=== PATIENT | female | born 1980 | race Caucasian/White ===

== ENCOUNTER 2018-05-09 10:30 | Emergency (ER) | payer OTHER ==
[2018-05-09 10:53] VITALS: BMI 23.3
--- NOTE | 2018-05-09 10:59 | C.PDOC ---
History Of Present Illness 37-year-old female with a PMHx of ovarian cysts, presents to the ED complaining of pain to the bilateral lower extremities, ongoing for over 1 week. Patient reports history of varicose veins in both legs. Additionally she compla ins of pelvic pain which is described as pressure-like, developing over the past month. Patient is approximately 18 weeks , and follows with OB Dr. Montemayor. She denies any vaginal bleeding, fever, chills, nausea, or vomiting. Time Seen by Provider: 05/09/18 10:41 Chief Complaint (Nursing): Lower Extremity Problem/Injury History Per: Patient History/Exam Limitations: no limitations Onset/Duration Of Symptoms: Days Current Symptoms Are (Timing): Still Present Past Medical History Reviewed: Historical Data, Nursing Documentation, Vital Signs - Medical History PMH: Denies: Depression Other PMH: Ovarian cysts Surgical History: Tonsillectomy Other Surgeries: Ovarian cyst removal - [facility] Procedures INJECT/INFUSE ELECTROLYT (05/07/12) INJECT/INFUSE NEC (05/07/12) Family History: States: Unknown Family Hx - Social History Hx Tobacco Use: No Hx Alcohol Use: No Hx Substance Use: No - Immunization History Hx Tetanus Toxoid Vaccination: No Hx Influenza Vaccination: No Hx Pneumococcal Vaccination: Yes Review Of Systems Constitutional: Negative for: Fever, Chills Cardiovascular: Negative for: Chest Pain Respiratory: Negative for: Shortness of Breath Gastrointestinal: Negative for: Nausea, Vomiting Genitourinary: Positive for: Pelvic Pain. Negative for: Dysuria, Frequency, Vaginal Discharge, Vaginal Bleeding Musculoskeletal: Positive for: Leg Pain Physical Exam - Physical Exam Appears: Well, Non-toxic, No Acute Distress Skin: Warm, Dry Head: Atraumatic, Normacephalic Eye(s): bilateral: Normal Inspection Oral Mucosa: Moist Neck: Normal ROM Chest: Symmetrical Cardiovascular: Rhythm Regular, No Murmur Respiratory: Normal Breath Sounds, No Accessory Muscle Use Gastrointestinal/Abdominal: Soft, Tenderness (Suprapubic), No Guarding, No Rebound Back: Normal Inspection Extremity: Normal ROM, Tenderness (thigh tenderness bilateral) Extremity: Bilateral: Atraumatic, Normal ROM, Other (Varicose veins to bilateral lower extremities) Pulses: Left Dorsalis Pedis: Normal, Right Dorsalis Pedis: Normal Neurological/Psych: Oriented x3, Normal Speech ED Course And Treatment - Laboratory Results Result Diagrams: 05/09/18 11:25 05/09/18 11:25 Lab Interpretation: Normal Urine POC: Positive O2 Sat by Pulse Oximetry: 99 (RA) Pulse Ox Interpretation: Normal - CT Scan/US No standard instances Other Rad Studies (CT/US): Read By Radiologist, Radiology Report Reviewed CT/US Interpretation: Findings: There is a single living fetus in breech presentation. Posterior placenta. The placenta is not previa. There are no adnexal masses or cysts evident. The study was performed for the emergent evaluation of bleeding, and the whole anatomic survey of the fetus was not performed. Limited submitted views demonstrate dilated renal collecting systems measuring approximately 7 mm on the right and 5 mm on the left. Recommend outpatient dedicated anatomic survey of the fetus as well as maternal specialist follow-up. Measurements and calculations: Fetus has a composite sonographic age of 18 weeks 3 days. This calculation is based on the biparietal diameter, head circumference, abdominal circumference, and femur length. Estimated heart rate 146.3 beats per min. Estimated weight 238.9 g. Impression: Single living fetus with a composite sonographic age of 18 weeks 3 days. Breech presentation. Estimated heart rate 146.3 beats per min. The study was performed for the emergent evaluation of bleeding, and the whole anatomic survey of the fetus was not performed. Limited submitted views demonstrate dilated renal collecting systems measuring approximately 7 mm on the right and 5 mm on the left. Recommend outpatient dedicated anatomic survey of the fetus as well as maternal specialist follow-up. Progress Note: Treated with tylenol 650 mg PO. Doppler bilateral lower extremity (-) DVT. 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 - Scribe Statement The provider has reviewed the documentation as recorded by the Vilmaibtrevon Dominguez All medical record entries made by the Vilmaibtrevon were at my direction and personally dictated by me. I have reviewed the chart and agree that the record accurately reflects my personal performance of the history, physical exam, medical decision making, and the department course for this patient. I have also personally directed, reviewed, and agree with the discharge instructions and disposition.
[2018-05-09 11:15] VITALS: RESP 18; O2SAT 99
[2018-05-09 11:23] LABS: SQUAMOUS EPITHIAL 7 /hpf (0-5); URINE BACTERIA RARE (<OCC); URINE BILIRUBIN NEGATIVE (NEGATIVE); URINE BLOOD NEGATIVE (NEGATIVE); URINE CLARITY Hazy (Clear); URINE COLOR Yellow (YELLOW); URINE GLUCOSE (UA) NORMAL (Normal); URINE LEUKOCYTE ESTERASE NEG Leu/uL (Negative); URINE PROTEIN 1+ mg/dL (NEGATIVE); URINE UROBILINOGEN NORMAL mg/dL (0.2-1.0)
[2018-05-09 11:34] LABS: BASO # 0.1 K/uL (0.0-0.2); BASO % 0.6 % (0.0-2.0); EOS # 0.1 K/uL (0.0-0.7); EOS % 0.7 % (0.0-4.0); HEMOGLOBIN 11.3 g/dL (11.0-16.0); LYMPH # 1.3 K/uL (1.0-4.3); LYMPH % 14.9 % (20.0-40.0); MEAN CELL VOLUME 90.5 fL (81.0-99.0); MEAN CORPUSCULAR HEMOGLOBIN 31.3 pg (27.0-31.0); MEAN CORPUSCULAR HGB CONC 34.6 g/dL (33.0-37.0); MEAN PLATELET VOLUME 9.1 fL (7.2-11.7); MONO # 0.4 K/uL (0.0-0.8); MONO % 4.8 % (0.0-10.0); NEUT # 6.9 K/uL (1.8-7.0); RBC 3.62 Mil/uL (3.80-5.20); RED CELL DISTRIBUTION WIDTH 14.1 % (11.5-14.5); WHITE BLOOD COUNT 8.7 K/uL (4.8-10.8)
[2018-05-09 12:07] LABS: ALB/GLOB RATIO 1.4 (1.0-2.1); ALBUMIN 3.4 g/dL (3.5-5.0); BLOOD UREA NITROGEN 11 mg/dL (7-17); CALCIUM 8.5 mg/dl (8.6-10.4); GFR NON-AFRICAN AMERICAN > 60
[2018-05-09 12:11] LABS: ALT/SGPT 15 U/L (9-52); AST/SGOT 25 U/L (14-36)
[2018-05-09 14:20] VITALS: BP 102/58; PULSE 79; TEMP 98.4
--- NOTE | 2018-05-09 14:21 | US ---
Indication: bleeding Comparison: None available Technique: Real-time ultrasound was performed through the pelvis. Findings: There is a single living fetus in breech presentation. Posterior placenta. The placenta is not previa. There are no adnexal masses or cysts evident. The study was performed for the emergent evaluation of bleeding, and the whole anatomic survey of the fetus was not performed. Limited submitted views demonstrate dilated renal collecting systems measuring approximately 7 mm on the right and 5 mm on the left. Recommend outpatient dedicated anatomic survey of the fetus as well as maternal specialist follow-up. Measurements and calculations: Fetus has a composite sonographic age of 18 weeks 3 days. This calculation is based on the biparietal diameter, head circumference, abdominal circumference, and femur length. Estimated heart rate 146.3 beats per min. Estimated weight 238.9 g. Impression: Single living fetus with a composite sonographic age of 18 weeks 3 days. Breech presentation. Estimated heart rate 146.3 beats per min. The study was performed for the emergent evaluation of bleeding, and the whole anatomic survey of the fetus was not performed. Limited submitted views demonstrate dilated renal collecting systems measuring approximately 7 mm on the right and 5 mm on the left. Recommend outpatient dedicated anatomic survey of the fetus as well as maternal specialist follow-up.
--- NOTE | 2018-05-11 07:07 | VASCLAB ---
Date of service: 05/09/2018 PROCEDURE: Lower Extremity Venous Duplex Exam. HISTORY: pain PRIORS: None. TECHNIQUE: Bilateral common femoral, femoral, popliteal and posterior tibial, peroneal and great saphenous veins were evaluated. Flow was assessed with color Doppler, compressibility, assessment of phasic flow and augmentation response. Report prepared by HCRISTOPHER Billings, RVT FINDINGS: RIGHT: 1. Common Femoral Vein: 1.1. Compressibility - Fully compressible: Thrombus - None : Flow - Phasic: Augmentation -Normal: Reflux - None. 2. Femoral Vein: 2.1. Compressibility - Fully compressible: Thrombus - None : Flow - Phasic: Augmentation -Normal: Reflux - None. 3. Popliteal Vein: 3.1. Compressibility - Fully compressible: Thrombus - None : Flow - Phasic: Augmentation -Normal: Reflux - None. 4. Posterior Tibial Vein: 4.1. Compressibility - Fully compressible: Thrombus - None: Flow - Phasic: Augmentation -Normal: Reflux - None. 5. Peroneal Vein: 5.1. Compressibility - Fully compressible: Thrombus - None: Flow - Phasic: Augmentation -Normal: Reflux - None. 6. Great Saphenous Vein: 6.1. Compressibility - Fully compressible: Thrombus - None: Flow - Phasic: Augmentation - Normal: Reflux - None. LEFT: 1. Common Femoral Vein: 1.1. Compressibility - Fully compressible: Thrombus - None: Flow - Phasic: Augmentation -Normal: Reflux - None. 2. Femoral Vein: 2.1. Compressibility - Fully compressible: Thrombus - None: Flow - Phasic: Augmentation -Normal: Reflux - None. 3. Popliteal Vein: 3.1. Compressibility - Fully compressible: Thrombus - None : Flow - Phasic: Augmentation -Normal: Reflux - None. 4. Posterior Tibial Vein: 4.1. Compressibility - Fully compressible: Thrombus - None: Flow - Phasic: Augmentation -Normal: Reflux - None. 5. Peroneal Vein: 5.1. Compressibility - Fully compressible: Thrombus - None: Flow - Phasic: Augmentation -Normal: Reflux - None. 6. Great Saphenous Vein: 6.1. Compressibility - Fully compressible: Thrombus - None: Flow - Phasic: Augmentation - Normal: Reflux - None. OTHER FINDINGS: Right: None significant. Left: None significant. IMPRESSION: Right: No evidence of deep or superficial vein thrombosis of the right lower extremity. Normal valve function noted of the right side. Left: No evidence of deep or superficial vein thrombosis of the left lower extremity. Normal valve function noted of the left side.
== END 2018-05-09 15:37 | disposition home or self-care (01) ==
LOC: C.ER 10:30
DX: S86.912A Strain of unspecified muscle(s) and tendon(s) at lower leg level, left leg, initial encounter (principal); S86.911A Strain of unspecified muscle(s) and tendon(s) at lower leg level, right leg, initial encounter; X58.XXXA Exposure to other specified factors, initial encounter; O21.0 Mild hyperemesis gravidarum; Z3A.18 18 weeks gestation of pregnancy